=== PATIENT | female | born 2005 | race Caucasian/White ===

== ENCOUNTER 2025-06-30 20:29 | Emergency (ER) | payer BC ==
[2025-06-30 21:02] LABS: Pregnancy Test - Urine (BHCG) Negative (Negative); Pregu Control Background? CLEAR/WHITE (CLR/WHITE); Pregu Control Bar Appear? YES (CONTROL BAR)
[2025-06-30] MEDS ORDERED: Ibuprofen 800 MG TAB ONE (21:10)
== END 2025-06-30 22:18 | disposition home or self-care (01) ==
LOC: MADERS 20:29
DX: S80.02XA Contusion of left knee, initial encounter (principal); M25.571 Pain in right ankle and joints of right foot; F17.290 Nicotine dependence, other tobacco product, uncomplicated; V89.0XXA Person injured in unspecified motor-vehicle accident, nontraffic, initial encounter; W22.12XA Striking against or struck by front passenger side automobile airbag, initial encounter
CPT/HCPCS: 81025; 99284; G0390